=== PATIENT | female | born 1970 | race Two or more races ===

== ENCOUNTER 2017-05-13 12:35 | Day surgery (SDC) | payer OTHER ==
[~2017-05-13] VITALS: Ht 160 cm; Wt 48.2 kg
[2017-05-13 13:04] VITALS: Ht 160 cm; Wt 48.2 kg
[2017-05-13] MEDS ORDERED: ATORVASTATIN (13:14)
[2017-05-13] MEDS ORDERED: LEVOTHYROXINE (13:14)
--- NOTE | 2017-05-13 14:00 | OPPN ---
Date/Time of Note Date/Time of Note DATE: 05/13/17 TIME: 13:59 Operative Report Preoperative Diagnosis Abdominal pain Chronic heartburn Change in bowel habits Postoperative Diagnosis Gastroesophageal reflux disease Gastritis with erosions Internal hemorrhoids Operation/Procedure Performed Esophagogastroduodenoscopy and biopsy Colonoscopy Surgeon see signature line assistant guest services manager None Anesthesia: moderate sedation Estimated blood loss: none Transfusion Required none Specimen Gastric mucosal biopsy Grafts/Implants none Complications none ZIYAD KNIGHT MD May 13, 2017 14:00
[2017-05-13] MEDS ORDERED: FENTAnyl 50 MCG/ML VIAL ONE (14:10)
[2017-05-13] MEDS ORDERED: MIDAZOLAM 1 MG/ML 2 ML INJ ONE ×3 (14:10)
--- NOTE | 2017-05-14 03:07 | GILP ---
DATE OF PROCEDURE: NAME OF PROCEDURES: 1. Esophagogastroduodenoscopy and biopsy. 2. Colonoscopy. SURGEON: Ziyad Matthews MD PREOPERATIVE DIAGNOSES: 1. Abdominal pain. 2. Chronic heartburn. 3. Change in bowel habit. POSTOPERATIVE DIAGNOSES: 1. Gastroesophageal reflux disease. 2. Gastritis with erosions. 3. Gastric mucosal biopsies were taken for Helicobacter pylori test. 4. Colonoscopy all the way to the cecum. 5. Internal hemorrhoids. 6. No colon neoplasm was identified. INDICATION FOR THE PROCEDURE: Ms. Tonya Heredia is a 46-year-old female patient who had uppe r abdominal pain and chronic heartburn, not responding to therapy. She also noticed a change in the bowel habit. The patient was scheduled for endoscopy and colonoscopy for further evaluation. The procedures and possible complications were well explained to the patient. She understood and co nsented to the procedures. DESCRIPTION OF PROCEDURE: Under the influence of fentanyl and Versed, the gastroscope was carefully introduced into the esophagus and under direct vision, it was advanced to the stomach and through t he pylorus into the duodenal bulb and descending duodenum. FINDINGS: ESOPHAGUS: The patient had gastroesophageal reflux disease. STOMACH: She had gastritis and gastric mucosal biopsies were taken for H. pylori test. DUODENUM: Normal. The colonoscope was carefully introduced in the rectum and under direct vision, it was advanced all the way to the cecum. FINDINGS: The patient had internal hemorrhoids. No colon neoplasm was identified. She tolerated the procedures very well. There were no complications from the procedures. At the en d of the procedures, she was awake with stable vital signs and she was discharged home in the care o f her family. IMPRESSION: Please see postoperative diagnoses. PLAN: 1. Pantoprazole 40 mg p.o. q.a.m. 2. Linzess 145 mcg p.o. q.a.m. before breakfast. 3. Await H. pylori test report. Dictated By: ZIYAD FOWLER/NOEMI Conf#: [id number] DID#: [id number]
== END 2017-05-13 15:21 | disposition home or self-care (01) ==
LOC: GIL 12:35
PROVIDERS: ATTEND Internal Medicine Gastroenterology
DX: K29.70 Gastritis, unspecified, without bleeding (principal); K21.9 Gastro-esophageal reflux disease without esophagitis; K64.8 Other hemorrhoids
CPT/HCPCS: 87081; J2250; J3010